=== PATIENT | female | born 1985 | race Caucasian/White ===

== ENCOUNTER 2018-11-22 02:07 | Day surgery (SDC) | payer BC, MEDICAID ==
[~2018-11-22] VITALS: Ht 165.1 cm; Wt 61.0 kg
[2018-11-22] MEDS ORDERED: SODIUM CHLORIDE 0.9% 1,000 ML IV ONE (02:57)
[2018-11-22 03:14] LABS: BASOPHILS % 0.4 % (0.0-2.0); EOSINOPHILS % 1.2 % (0.0-5.0); HEMATOCRIT. 31.1 % (36.0-48.0); HEMOGLOBIN. 10.9 g/dL (12.0-16.0); MEAN CORPUSCULAR HEMOGLOBIN 33.7 pg (28.0-32.0); MEAN CORPUSCULAR VOLUME 96.6 fL (81.0-99.0); MEAN PLATELET VOLUME 7.8 fl (7.4-10.4); MONOCYTES % 5.9 % (2.0-8.0); NEUTROPHILS % 68.5 % (40.0-76.0); PLATELET 225 x1000/uL (130-400); RED BLOOD CELL COUNT 3.22 mill/uL (4.2-5.4); RED CELL DISTRIBUTION WIDTH 12.2 % (11.6-14.6)
[2018-11-22 03:22] LABS: CHLORIDE 111 mEq/L (98-107)
[2018-11-22 03:33] LABS: B-HCG QUANTITATIVE 37 mIU/mL (<3)
[2018-11-22 05:38] LABS: CLARITY URINE CLEAR (CLEAR); COLOR URINE YELLOW (YELLOW); KETONES URINE 1+ (NEGATIVE); LEUKOCYTE ESTERASE URINE NEGATIVE (NEGATIVE); NITRITE URINE NEGATIVE (NEGATIVE); OCCULT BLOOD URINE 3+ (NEGATIVE); PROTEIN URINE 1+ (NEGATIVE); SPECIFIC GRAVITY URINE 1.025 (1.005-1.030); UROBILINOGEN URINE 0.2 E.U./dL (0.2-1.0)
[2018-11-22 07:00] VITALS: BP 95/58
[2018-11-22] MEDS ORDERED: FENTANYL CITRATE/PF 50MCG/ML 2ML VIAL ONE (07:24)
[2018-11-22] MEDS ORDERED: MIDAZOLAM HCL 2 MG/2 ML VIAL ONE (07:24)
[2018-11-22] MEDS ORDERED: CEFAZOLIN SODIUM 1000MG/VIAL ONE (07:24)
[2018-11-22] MEDS ORDERED: PROPOFOL 200MG/20ML VIAL IV ONE (07:24)
[2018-11-22] MEDS ORDERED: KETOROLAC 30MG/ML VIAL ONE (07:24)
[2018-11-22] MEDS ORDERED: LIDOCAINE HCL/PF 1% 10 MG/ML 5ML VIAL ONE (07:24)
[2018-11-22] MEDS ORDERED: ONDANSETRON HCL 4MG/2ML INJ ONE (07:25)
[2018-11-22] MEDS ORDERED: METOCLOPRAMIDE HCL 10MG/2ML VIAL ONE (07:25)
[2018-11-22] MEDS ORDERED: DEXAMETHASONE 4MG/ML 1ML VIAL ONE (07:25)
[2018-11-22] MEDS ORDERED: DEXT 5%/0.45% NACL KCL 20MEQ/L 1,000 ML IV SCH (08:07)
[2018-11-22] MEDS ORDERED: METHYLERGONOVINE MALEATE 0.2 MG/ML ONE (08:08)
[2018-11-22] MEDS ORDERED: KETOROLAC 60MG/2ML VIAL IM ONE (08:15)
[2018-11-22] MEDS ORDERED: ONDANSETRON HCL 4MG/2ML INJ IV PRN (08:15)
[2018-11-22] MEDS ORDERED: MORPHINE SULFATE 2 MG/ML CPJ (NOT FOR IM USE) IV PRN (08:30)
== END 2018-11-22 08:37 | disposition home or self-care (01) ==
LOC: ER 02:07 → OR 07:30 → CANBEDREQ 10:49 → EDBEDREQ 12:09 → CANBEDREQ 14:46
PROVIDERS: ATTEND Specialist
DX: O03.4 Incomplete spontaneous abortion without complication (principal); D64.9 Anemia, unspecified; N93.8 Other specified abnormal uterine and vaginal bleeding; F12.10 Cannabis abuse, uncomplicated; Z98.891 History of uterine scar from previous surgery
CPT/HCPCS: 36415; 59812; 76830; 76856; 80053; 81003; 84702; 85025; 86850; 86900; 86901; 88305; 96360; 99284; J0690; J1100; J1885; J2210; J2250; J2405; J2704; J2765; J3010; J3490; J7030